=== PATIENT | male | born 1970 | race Caucasian/White ===

== ENCOUNTER 2024-08-12 19:48 | Emergency (ER) | payer OTHER ==
[~2024-08-12] VITALS: Ht 180.3 cm; Wt 90.7 kg
[2024-08-12 20:24] VITALS: PULSE 74; RESP 22; TEMP 97.9; O2SAT 100
[2024-08-12] MEDS ORDERED: AUGMENTIN 500-1 EACH PO (20:28)
== END 2024-08-12 20:35 | disposition home or self-care (01) ==
LOC: ER 19:54
DX: K02.9 Dental caries, unspecified (principal); F17.210 Nicotine dependence, cigarettes, uncomplicated
CPT/HCPCS: 99282

== ENCOUNTER 2025-04-04 03:40 | Emergency (ER) | payer SELFPAY ==
[~2025-04-04] VITALS: Ht 180.3 cm; Wt 81.6 kg
[~2025-04-04 03:40] MED LIST: AUGMENTIN 500-1 EACH PO
[2025-04-04 03:42] VITALS: PULSE 92; RESP 18; TEMP 98.2; O2SAT 98
[2025-04-04] MEDS ORDERED: CLINDAMYCIN HC150 MG PO (04:10)
== END 2025-04-04 04:25 | disposition home or self-care (01) ==
LOC: ER 03:42
DX: L02.412 Cutaneous abscess of left axilla (principal); L02.411 Cutaneous abscess of right axilla; F17.210 Nicotine dependence, cigarettes, uncomplicated
CPT/HCPCS: 99283